=== PATIENT | male | born 1980 | race Caucasian/White ===

== ENCOUNTER 2017-01-27 09:24 | Day surgery (SDC) | payer OTHER ==
--- NOTE | 2017-01-22 16:29 | HP ---
DATE OF SURGERY: 01/27/2017 ADMISSION DIAGNOSIS: Lipoma of the chest. ANTICIPATED PROCEDURE: Excision. HISTORY OF PRESENT ILLNESS: The patient has a 5 x 5 x 3 cm enlarging painful lipoma of the chest wall requiring excision. PAST MEDICAL HISTORY: ALLERGIES: NONE. MEDICATIONS: None. PAST SURGICAL HISTORY: None. SOCIAL HISTORY: Negative. FAMILY HISTORY: Negative. PHYSICAL EXAMINATION: VITAL SIGNS: Normal. CHEST: Clear. COR: Regular. IMPRESSION: Lesion chest wall. PLAN: Excision.
[~2017-01-27 09:24] MED LIST: DEMEROL 50 MG IV ONE; Sodium Chloride 0.9% 1000 ML 1,000 ML ONE; VERSED 5 MG/5 ML IV ONE; XYLOCAINE 1% HCL 20 ML MDV ONE
[2017-01-27] MEDS ORDERED: Sodium Chloride 0.9% 1000 ML 1,000 ML IV SCH (09:30)
[2017-01-27] MEDS ORDERED: Sodium Chloride 0.9% 1000 ML 1,000 ML ONE (09:40)
[2017-01-27 11:56] VITALS: O2SAT 100
[2017-01-27 13:47] VITALS: BP 134/84; PULSE 82
--- NOTE | 2017-01-28 15:14 | OP ---
SURGERY DATE: 01/27/17 SURGERY TIME: 999 PREOPERATIVE DIAGNOSIS: 1. ENLARGING LIPOMA OF THE ANTERIOR CHEST WALL EXTERNAL MANUBRIAL AREA. POSTOPERATIVE DIAGNOSIS: 1. ENLARGING LIPOMA OF THE ANTERIOR CHEST WALL EXTERNAL MANUBRIAL AREA. PROCEDURE: 1. Excision 7 X 5 X 5 cm lipoma. SURGEON: Andrea Mcclellan M.D. ANESTHESIA: IV sedation, local. COMPLICATIONS: None. CONDITION: Stable. INDICATION: The patient has a large lipoma of the left lower neck/upper chest wall. OPERATIVE PROCEDURE: Taken to surgery. Routine prep and drape. Transverse incision. It was multiloculated. It was able to be removed in its entirety. Hemostasis obtained with electrocautery. Closed with 3-0 Vicryl, 4-0 Vicryl, Steri-strips. Patient tolerated the procedure satisfactory.
== END 2017-01-27 12:30 | disposition home or self-care (01) ==
LOC: SDC 09:24
PROVIDERS: ATTEND Surgery
PROC: 0HB5XZX Excision of Chest Skin, External Approach, Diagnostic (ICD-10-PCS; principal; 2017-01-27)
DX: D17.1 Benign lipomatous neoplasm of skin and subcutaneous tissue of trunk (principal); R20.8 Other disturbances of skin sensation
CPT/HCPCS: 36415; 88304; J2175; J2250